=== PATIENT | male | born 1935 ===

== ENCOUNTER 2019-07-31 15:07 | Outpatient (REF) | payer MEDICARE, SELFPAY ==
[2019-07-31 19:43] LABS: Anion Gap 10.7 mmol/L (3-11); BUN 35 mg/dL (7-18); CO2 26.3 mmol/L (21.0-32.0); CREATININE 1.93 mg/dL (0.70-1.30); Calcium 9.6 mg/dL (8.5-10.1); Calculated LDL 50 mg/dL (<100); Chloride 106 mmol/L (98-107); Cholesterol 159 mg/dL (<200); Estimated GFR 33.33 (mL/min/1.73m2); Glucose 122 mg/dL (74-106); HDL Cholesterol 37 mg/dL (40-60); Potassium 4.9 mmol/L (3.5-5.1); Sodium 143 mmol/L (136-145); Triglyceride 363 mg/dL (<150)
== END 2019-07-31 15:27 ==
LOC: LBN 15:07
PROVIDERS: PCP Internal Medicine; Visit Provider Internal Medicine
DX: E78.00 Pure hypercholesterolemia, unspecified (principal); E11.9 Type 2 diabetes mellitus without complications
CPT/HCPCS: 80048; 80061